=== PATIENT | male | born 1985 | race Caucasian/White ===

== ENCOUNTER → 2016-03-13 | Outpatient (CLI) | payer BC ==
[~2016-03-13] MED LIST: DICL50TA3 PO; FENO160T PO; FLUT0.0529 NAE
--- NOTE | 2016-03-13 15:00 | DIAGNOSTIC IMAGING REPORT ---
SCROTAL ULTRASOUND CLINICAL HISTORY: Left testicular pain. COMPARISON STUDY: None. TECHNIQUE: Grayscale and color and duplex Doppler sonography of the scrotum was performed. FINDINGS: The right testis measures 5.1 x 3.2 x 2.5 cm and the left measures 4.9 x 3.3 x 2.5 cm. There is no testicular mass. Color flow within each testis is symmetric. There is no evidence of epididymitis. There is a small left varicocele. IMPRESSION: 1. Normal sonographic appearance of the testes. No evidence of torsion. No testicular mass. 2. Small left varicocele. Electronically signed by: Oneal Broussard M.D. 03/13/2016 2:58 PM Dictated Date/Time: 03/13/2016 2:57 PM
== END | disposition home or self-care (01) ==
LOC: C.ULTRBC 13:59
PROVIDERS: ATTEND Family Medicine
DX: N50.812 Left testicular pain (principal); I86.1 Scrotal varices

== ENCOUNTER → 2016-08-28 | Outpatient (CLI) | payer BC ==
[2016-09-02 21:32] LABS: CHLAMYDIA TRACH RNA*** NOT DETECTED (NOT DETECTED); GC (NEIS GONORRHOEAE)RNA** NOT DETECTED (NOT DETECTED)
[2016-09-05 17:34] LABS: HERPES SIMPLEX AB IGG-1 < 0.90 INDEX (< 0.90); HERPES SIMPLEX AB IGG-2 < 0.90 INDEX (< 0.90); HSV1 AB IGM Negative (Negative); HSV2 AB IGM Negative (Negative)
== END | disposition home or self-care (01) ==
LOC: C.LAB 16:27
PROVIDERS: ATTEND Family Medicine
DX: Z11.3 Encounter for screening for infections with a predominantly sexual mode of transmission (principal)

== ENCOUNTER → 2016-09-28 | Day surgery (SDC) | payer BC ==
[2016-09-22 14:48] LABS: BASO % 0.4 %; BASO ABS # 0.02 K/uL (0-0.2); COMPLETE YES; EOS % 1.4 %; HEMATOCRIT 49.1 % (42-52); IG% 0.2 %; LYMPH % 28.6 %; LYMPH ABS # 1.63 K/uL (1.2-3.4); MEAN CELL VOLUME 89.3 fL (80-100); MEAN CORPUSCULAR HEMOGLOBIN 30.7 pg (25-34); MEAN CORPUSCULAR HGB CONC 34.4 g/dl (32-36); MONO % 5.3 %; NEUT % 64.1 %; PLATELET COUNT 195 K/uL (130-400); WHITE BLOOD COUNT 5.69 K/uL (4.8-10.8)
[2016-09-22 14:49] LABS: INR 1.1 (0.9-1.1); PROTHROMBIN TIME (PATIENT) 11.7 SECONDS (9.0-12.0)
[2016-09-22 15:10] LABS: POTASSIUM 3.7 mmol/L (3.5-5.1)
--- NOTE | 2016-09-22 15:59 | DIAGNOSTIC IMAGING REPORT ---
CHEST 2 VIEWS ROUTINE CLINICAL HISTORY: Preoperative evaluation. COMPARISON STUDY: No previous studies for comparison. FINDINGS: Lung volumes are normal. There is no pneumothorax or pleural effusion. Lungs are clear. Cardiac size is normal. Mediastinal contours are normal with the exception of mild widening of the right paratracheal stripe. There is no evidence of pulmonary edema. IMPRESSION: 1. No acute cardiopulmonary findings. 2. Mild widening of the right paratracheal stripe, a nonspecific finding often due to normal vessels. Lymphadenopathy or mass could appear similar. Electronically signed by: Oneal Broussard M.D. 09/22/2016 3:57 PM Dictated Date/Time: 09/22/2016 2:00 PM
[2016-09-23 09:34] VITALS: Ht 193 cm; Wt 118.2 kg
[~2016-09-28] VITALS: Ht 193 cm; Wt 118.2 kg
[~2016-09-28] MED LIST changes: +ACETAMINOPHEN 500 MG TAB PO PRN; +ATROPINE SULFATE 0.1 MG/ML 5ML SYR IV PRN; +DEXAMETHASONE SOD INJ 4 MG/ML VIAL ONE; -DICL50TA3 PO; +EpHEDrine SULFATE INJ 50 MG/ML AMP IV PRN; -FENO160T PO; +FENTANYL CITRATE INJ 50 MCG/1 ML 2 ML VIAL IV PRN; +FENTANYL CITRATE INJ 50 MCG/1 ML 2 ML VIAL ONE; -FLUT0.0529 NAE; +LACTATED RINGER'S 1000ML 1,000 ML IV SCH; +LIDOCAINE HCL 2% 2 ML VIAL (20MG/ML) ONE; +MIDAZOLAM HCL 1 MG/ML 2ML VIAL ONE; +OFLOXACIN 0.3% OP SOLN 5 ML BTL ONE; +ONDANSETRON INJ 2 MG/ML 2 ML VIAL IV PRN; +ONDANSETRON INJ 2 MG/ML 2 ML VIAL ONE; +PROPOFOL IV EMULSION 10 MG/ML 20 ML VIAL IV ONE
--- NOTE | 2016-09-28 08:41 | History & Physical Bridge - [place] ---
H&P Re-Evaluation Bridge Note: I have examined the patient, reviewed the History & Physical and in the interval since the performance of the History & Physical I have noted the following changes of clinical significance: No changes noted
--- NOTE | 2016-09-28 09:19 | [facility] Operative Report ---
Operative Report Operative Date Sep 28, 2016. Pre-Operative Diagnosis Eustachian Tube Dysfunction Post-Operative Diagnosis Same Procedure(s) Performed Bilateral Myringotomy with Tube Insertion Surgeon Dr. Tineo Entry Level Manufacturing Engineer Surgeon(s) None Estimated Blood Loss 0 Findings 1. 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 DRY MIDDLE EAR SPACE BILATERALLY Specimens None I attest to the content of the Intraoperative Record and any orders documented therein. Any exceptions are noted below.
--- NOTE | 2016-09-28 09:20 | Discharge Instructions ---
Discharge Instructions Date of Service Sep 28, 2016. Admission Reason for Admission: Eustachian Tube Dysfunction;Pre-Op Z01.818 Discharge Discharge Diagnosis / Problem: SAME Discharge Goals Goal(s): Therapeutic intervention Activity Recommendations Activity Limitations: as noted below DRY EAR PRECAUTIONS WHILE TUBES IN PLACE; NO NOSE BLOWING FOR 2 WEEKS . Current Hospital Diet Patient's current hospital diet: Discharge Diet Recommended Diet: Regular Diet Procedures Procedures Performed: Bilateral Myringotomy with Tube Insertion Pending Studies Studies pending at discharge: no Medical Emergencies . Who to Call and When: Medical Emergencies: If at any time you feel your situation is an emergency, please call 911 immediately. . Non-Emergent Contact Non-Emergency issues call your: Surgeon . . "Provider Documentation" section prepared by Albert Tineo. . VTE Core Measure Inpt VTE Proph given/why not?: SCD's
--- NOTE | 2016-09-28 09:38 | OPERATIVE REPORT ---
DATE OF OPERATION: 09/28/2016 PREOPERATIVE DIAGNOSES: 1. Bilateral Eustachian tube dysfunction. 2. Bilateral mixed hearing loss. POSTOPERATIVE DIAGNOSES: 1. Bilateral Eustachian tube dysfunction. 2. Bilateral mixed hearing loss. PROCEDURE: Bilateral myringotomy tube placement. SURGEON: Dr. Tineo. ANESTHESIA: General laryngeal mask airway. ESTIMATED BLOOD LOSS: Zero. FINDINGS: 1. Severely retracted and atrophic tympanic membranes with a moderate amount of tympanosclerosis. 2. Dry middle ear space bilaterally. SPECIMENS: None. COMPLICATIONS: None. INDICATIONS FOR THE PROCEDURE: The patient is a 30-year-old male with chronic Eustachian tube dysfunction, who had childhood otitis media. He continues to have problems with chronic Eustachian tube dysfunction despite several rounds of systemic steroids as well as allergy treatment. He presents for the above-mentioned procedure on an outpatient elective basis. DETAILS OF PROCEDURE: After informed consent had been obtained from the patient, the patient was wheeled to the operating room and placed on the operating table in the supine position. Monitors were placed after induction of general anesthesia via laryngeal mask airway, the patient's head was gently turned to the left and a speculum was inserted into the right external auditory canal. A cerumen loop was used to remove excess cerumen. A myringotomy knife was used to make a radial incision in the anterior inferior quadrant of the tympanic membrane which was found to be severely retracted and atrophic with a moderate amount of tympanosclerosis. The middle ear space was found to be dry. A silicone Cindy tympanostomy tube was then placed. Floxin drops were instilled into the middle ear space and a cotton ball was placed into the conchal bowl. The left side was then addressed in a similar fashion with similar intraoperative findings. This marked the end of the case. The patient tolerated the procedure well, there were no apparent complications. The patient had his laryngeal mask airway removed and was transferred to the recovery room in stable condition. I attest to the content of the Intraoperative Record and any orders documented therein. Any exception s are noted below.
[2016-09-28 10:35] VITALS: BP 133/85; PULSE 71; O2SAT 98
--- NOTE | 2016-09-28 10:37 | Anesthesiology Progress Note ---
Anesthesia Post Op Note Date & Time Sep 28, 2016 at 10:37 Vital Signs Pain Intensity: 2 Vital Signs Past 12 Hours Date Time Temp Pulse Resp B/P (MAP) Pulse Ox O2 Delivery O2 Flow Rate FiO2 09/28/16 10:03 36.8 65 16 121/83 (96) 94 Room Air 09/28/16 09:56 121/85 09/28/16 09:55 82 18 09/28/16 09:55 80 18 92 09/28/16 09:55 36.6 73 16 121/85 94 Room Air 09/28/16 09:51 127/80 09/28/16 09:50 87 21 95 09/28/16 09:50 88 21 09/28/16 09:46 129/83 09/28/16 09:45 84 18 09/28/16 09:45 83 18 98 09/28/16 09:41 130/84 09/28/16 09:40 85 18 99 09/28/16 09:40 85 18 09/28/16 09:36 124/78 09/28/16 09:35 97 17 09/28/16 09:35 98 17 98 09/28/16 09:31 92/57 09/28/16 09:30 68 09/28/16 09:30 68 96 09/28/16 09:30 36.4 71 20 92/57 98 Diffusion Mask 6 09/28/16 07:22 36.7 69 18 133/78 (96) 97 Room Air Notes Mental Status: alert / awake / arousable, participated in evaluation Pt Amnestic to Procedure: Yes Nausea / Vomiting: adequately controlled Pain: adequately controlled Airway Patency, RR, SpO2: stable & adequate BP & HR: stable & adequate Hydration State: stable & adequate Anesthetic Complications: no major complications apparent
== END | disposition home or self-care (01) ==
LOC: X.SURG 07:05
DX: H69.83 Other specified disorders of Eustachian tube, bilateral (principal); H69.81 Other specified disorders of Eustachian tube, right ear; E78.5 Hyperlipidemia, unspecified; I45.6 Pre-excitation syndrome; Z87.891 Personal history of nicotine dependence; F41.9 Anxiety disorder, unspecified; K21.9 Gastro-esophageal reflux disease without esophagitis; E66.9 Obesity, unspecified

== ENCOUNTER → 2016-11-23 | Outpatient (CLI) | payer BC ==
--- NOTE | 2016-11-23 16:28 | DIAGNOSTIC IMAGING REPORT ---
CHEST 2 VIEWS ROUTINE CLINICAL HISTORY: SHORTNESS OF BREATH COMPARISON STUDY: 09/22/2016 FINDINGS: The cardiac and mediastinal contours are normal. There is no evidence of focal pulmonary consolidation. There is no evidence of failure. No pleural effusions are visualized.[ IMPRESSION: No active disease in the chest. Electronically signed by: Stuart Escalera M.D. 11/23/2016 4:27 PM Dictated Date/Time: 11/23/2016 4:27 PM
== END | disposition home or self-care (01) ==
LOC: C.RADBC 16:13
PROVIDERS: ATTEND Family Medicine
DX: R06.02 Shortness of breath (principal)